=== PATIENT | female | born 1945 | race Caucasian/White ===

== ENCOUNTER → 2016-06-28 | Outpatient (CLI) | payer MEDICARE, OTHER ==
[~2016-06-28] MED LIST: BIOT1SUB SL; BIOT50005 PO; CALC1TAB53 PO; CENTTAB PO; LISI20TA PO; LYSI1TAB4 PO; OCUVTAB PO; VITA-83 PO; VITA500T49 PO
[2016-06-28 13:30] LABS: BACTERIA, URINE RARE /hpf; BLOOD, URINE NEG (NEG); GLUCOSE,URINE NEG (NEG); KETONE, URINE NEG (NEG); MUCUS URINE FEW /lpf (OCC); NITRITE,URINE NEG (NEG); PH, URINE 5.5 (5.0-8.5); SQUAMOUS EPITHELIAL CELL URINE <1 /hpf (0-5); URINE COLOR LIGHT-YELLOW (YELLW/STRAW)
[2016-06-28 13:37] LABS: COMMENT (UR) CULT NOT INDICATED; CULTURE IF INDICATED CULT NOT INDICATED
[2016-06-28 13:38] LABS: INTERNATIONAL NORMALIZED RATIO 0.9 RATIO
[2016-06-28 13:53] LABS: BICARBONATE 27.3 MEQ/L (21.0-32.0)
--- NOTE | 2016-06-28 14:45 | RADRPT ---
EXAM DATE/TIME: 06/28/2016 13:49 [facility] COMPARISON: No previous studies available for comparison. INDICATIONS : Evaluate for pneumonia, pneumothorax or communicable disease.Pre op for right knee surgery 07-06-16 MEDICAL HISTORY : None. SURGICAL HISTORY : None. ENCOUNTER: Initial ACUITY: 1 day PAIN SCORE: 0/10 LOCATION: Bilateral chest FINDINGS: PA and lateral views of the chest demonstrate the lungs to be symmetrically aerated without evidence of mass, infiltrate or effusion. The cardiomediastinal contours are unremarkable. Osseous structure s are intact. Scoliotic curvature. CONCLUSION: No acute disease. Pedro Gerard Jr., MD on June 28, 2016 at 14:43 Board Certified Radiologist. This report was verified electronically.
--- NOTE | 2016-06-29 16:43 | EKG ---
Date Performed: 06/28/2016 Time Performed: 13:11:19 PTAGE: 70 years EKG: Sinus rhythm LOW QRS VOLTAGE IN PRECORDIAL LEADS POSSIBLE ANTERIOR MYOCARDIAL INFARCTION, PROBABLY OLD BORDERLINE ECG NO PREVIOUS TRACING DOCTOR: Flavio Huang Interpretating Date/Time 06/29/2016 16:41:35
== END ==
LOC: CPRE 12:44
PROVIDERS: ATTEND Orthopaedic Surgery
DX: Z01.810 Encounter for preprocedural cardiovascular examination (principal); S83.231A Complex tear of medial meniscus, current injury, right knee, initial encounter; R94.31 Abnormal electrocardiogram [ECG] [EKG]; Z01.812 Encounter for preprocedural laboratory examination; Z01.818 Encounter for other preprocedural examination; X58.XXXA Exposure to other specified factors, initial encounter
CPT/HCPCS: 36415; 71020; 80048; 81001; 85610; 93005

== ENCOUNTER → 2016-07-06 | Day surgery (SDC) | payer MEDICARE, OTHER ==
--- NOTE | 2016-06-28 16:54 | MH ---
cc: VEENA TAPIA M.D. DATE OF ADMISSION: 07/06/2016 ADMITTING DIAGNOSIS: 1. A complex tear of the medial meniscus of the right knee. 2. Large joint effusion, right knee. 3. Chondromalacia, right knee. 4. Solomon's cyst, right knee. 5. Pain of the right knee. HISTORY OF PRESENT ILLNESS: The patient is a 79-year-old white female who has had at least a 5-month history of pain involving her right knee. She associated the onset of her symptoms while she was visiting her daughter in [place] in February of this past year and while negotiating stairs on a regular basis she began to note soreness about her right knee. Upon her return home, she remained active as she was preparing her home for the anticipation of [place]. Her symptoms persisted for which she conformed to conservative management which included ice application, rest and elevation and taking Advil. She later switched to Tylenol and Aleve that she found to be somewhat more effective as well as wearing an elastic knee support. Her symptoms tended to wax and wane in nature for which she was later seen in March of this past year by her primary care physician, Dr. Canales. X-ray studies were unremarkable. The patient was treated with a steroid Dosepak that she did find to be of temporary benefit. Her symptoms tended to recur thereafter and she subsequently underwent an MRI scan the results of which identified a complex medial meniscus tear with extrusion of the body of the meniscus associated with a large joint effusion, moderately severe medial compartment chondromalacia and mild chondromalacia of the lateral compartment was also identified. A small Solomon's cyst was associated. The patient was subsequently seen by the undersigned physician in May of this year and at that time she reported ongoing pain about her right knee somewhat more pronounced medially associated with swelling but no grinding, locking or giving way. Her overall clinical findings were felt to be consistent with internal derangement of the right knee for which findings and treatment options were reviewed. The pros and cons of continuing with conservative management versus operative intervention that would involve arthroscopic surgery were outlined in detail. Emphasis was made regarding the fact that the decision to proceed with surgery would be left entirely to the patient's discretion. The patient herself indicated that she felt she had progressed to that point in time where she would like to proceed with such treatment, and in compliance with her wishes she was currently scheduled for admission in order that arthroscopic surgery be accomplished. PAST MEDICAL HISTORY, HOSPITALIZATIONS AND SURGERIES: Her past medical history, hospitalizations and surgeries have included: 1. Excision of a uterine cyst. 2. Removal of an infected IUD. 3. Colectomy for history of stage III cancer of the ascending colon. 4. Tonsillectomy. 5. Appendectomy. 6. D&C. 7. Colonoscopy. The patient's medical illnesses include: 1. Hypertension for which she takes lisinopril, hydrochlorothiazide 25 / 12.5 daily. MEDICATIONS: Her additional medications include: 1. Multiple supplements including Centrum Silver, calcium, magnesium, zinc, D3, vitamin C, vitamin B12, biotin, l-lysine, and Ocuvite. ALLERGIES: THE PATIENT DENIES ANY KNOWN DRUG ALLERGIES. REVIEW OF SYSTEMS: She does wear glasses. Denies headache, seizure or syncope. No sinus congestion or epistaxis. Auditory acuity intact. No tinnitus. No bleeding gums or dysphagia. Denies cough, shortness of breath, upper respiratory infection, pneumonia or tuberculosis. She has had positive skin testing for tuberculosis in the past. No angina or heart disease. She is medically managed for hypertension. Her appetite is good. Bowel movements are regular. No hepatitis, gallbladder disease, ulcers or hemorrhoids. No urinary tract infection. No kidney stones. History of a fracture of the right forearm during childhood treated by cast immobilization. No psychiatric illness. Her remaining review of systems is unremarkable and noncontributory. FAMILY HISTORY: The patient has been 7 years, this being a second marriage. Her is 71 years of age with multiple medical problems including diabetes, heart disease, congestive heart failure and prostate cancer. She has one son and one daughter by previous marriage who are indicated to be in good health. Her family history is otherwise positive for hypertension, diabetes, heart disease and colon cancer. SOCIAL HISTORY: The patient completed a college education. 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 She denies active use of tobacco. Ethanol consumption in the form of an occasional glass of wine. PHYSICAL EXAMINATION: HEIGHT: Height is 5 feet 4 inches. WEIGHT: 203 pounds. GENERAL: An alert, oriented and responsive 70-year-old white female who sits quietly upon examination table with no obvious distress. HEAD, EYES, EARS, NOSE, THROAT: Pupils are equal, round and reactive to light. Extraocular movements full. Sclerae are clear. External nares are clear. External auditory canals clear. Dental intact. Mucous membranes pink and moist. Pharynx clear. NECK: Neck is supple. Active range motion without appreciable pain. Carotid pulse bilaterally. Trachea midline. Thyroid without enlargement. LUNGS: Clear to auscultation and percussion. No CVA tenderness. No discomfort throughout the dorsal or lumbar spine. HEART: Regular rhythm. No murmur or gallop. ABDOMEN: Abdomen is soft, nontender. Bowel sounds present. PELVIC: Per primary care physician. EXTREMITIES: Right knee - there is mild fullness about the knee consistent with redundancy of soft tissue. No obvious intra-articular effusion. Medial joint line tenderness. Apprehension and compression signs negative. Satisfactory mobility of the knee joint with slight limitation at the extreme of flexion without significant crepitation elicited. No collateral ligamentous laxity. Mary test and draw sign negative. Pivot shift and Brittani sign minimally positive for medial compartment pain. Straight-leg raising unremarkable at 80 degrees. Satisfactory mobility of the right hip with no associated pain. Distal sensory grossly intact. Independent gait. NEUROLOGIC: Cranial nerves II-XII grossly intact. IMPRESSION: 1. Complex tear of medial meniscus right knee. 2. Large joint effusion right knee. 3. Chondromalacia right knee. 4. Popliteal cyst right knee. 5. Pain right knee PLAN: Arthroscopic surgery and possible arthrotomy right knee. The nature of the planned surgical procedure, the potential complications and risks associated, the expectations of surgery and the consent form were thoroughly reviewed with the patient prior to admission to the hospital and she has indicated her full understanding regarding all of the above and has given consent to proceed with treatment as outlined. Medical evaluation and clearance for surgery will be completed by her primary care physician, Dr. Tobin Canales. MD HERNANDEZ Pope/JCC /3:55 PM /4:09 PM
[~2016-07-06] VITALS: Ht 162.6 cm; Wt 93.2 kg
[~2016-07-06] MED LIST changes: +*morphine SULFATE 8 MG/ML PERIprocedure ONLY ONE; +ACETAMINOPHEN 1000 MG/100 ML VIAL IV ONE; +ACETAMINOPHEN/HYDROcodone 325 MG/5 MG TAB PO PRN; +DO NOT ADM ANY ANTICOAGULANT DRUGS XX PRN; +FAMOTIDINE 20 MG/2 ML VIAL ONE; +INSULIN HUMAN REGULAR 1,000 UNITS/10 ML VIAL SQ PRN; +KETOROLAC TROMETHAMINE 60 MG/2 ML (IM) VIAL IM ONE; +LACTATED RINGER'S 1000 ML INJ 1,000 ML IV ONE; +LACTATED RINGER'S 1000 ML IV SCH; +LIDOCAINE HCL 2% PF SOLN 10 ML VIAL ONE; +METOPROLOL TARTRATE 25 MG TAB PO PRN; +MIDAZOLAM HCL 2 MG/2 ML VIAL ONE; +ONDANSETRON HCL 4 MG/2 ML VIAL IV PUSH ONE; +POVIDONE IODINE 7.5% SCRUB 118 ML BOTTLE TOP SCH; +PROMETHAZINE INJ 25 MG/ML VIAL IM PRN; +PROPOFOL 200 MG/20 ML AMP IV ONE; +SODIUM CHLORID 0.9% 500 ML IV SCH; +TRIAMCINOLONE ACETONIDE 40 MG/ML VIAL I-SYNOVIAL ONE; +ceFAZolin 2 GM PREMIX 50 ML IV SCH; +fentaNYL CITRATE 250 MCG/5 ML AMP ONE
[2016-07-06 06:12] VITALS: BP 164/83; PULSE 71; RESP 18; TEMP 97.9; O2SAT 96
[2016-07-06 09:30] VITALS: TEMP 97.5
[2016-07-06 10:30] VITALS: BP 153/86; PULSE 59; RESP 18; O2SAT 98
--- NOTE | 2016-07-06 13:33 | MP ---
cc: VEENA TAPIA DATE OF SURGERY July 06, 2016 PREOPERATIVE DIAGNOSES Complex tear medial meniscus right knee. Large joint effusion. Chondromalacia right knee. Solomon's cyst right knee. Pain right knee. POSTOPERATIVE DIAGNOSES Complex tear medial meniscus right knee. Large joint effusion. Chondromalacia right knee. Solomon's cyst right knee. Pain right knee. Synovial plica right knee. PROCEDURE 1. Partial medial meniscectomy right knee. 2. Chondroplasty of medial femoral compartment and resection of synovial plica right knee. SURGEON MD Piotr ANESTHESIA General by LMA. FORMAT Following the induction of satisfactory general anesthesia by LMA insertion as completed per the Department of Anesthesia, examination of the right knee revealed a satisfactory range of motion with no appreciable ligamentous instability. The extremity proper was positioned into the ophthalmology surgical technician knee collier, prepped with Betadine solution and draped into a sterile field in the routine manner. Prior to initiation of the actual procedure, the standard time-out protocol was completed, all parameters being appropriately addressed and confirmed by operating room personnel. Arthroscopic instrumentation was introduced through stab wound utilizing cannula with sharp and blunt trocar, the inflow irrigation by way of the medial suprapatellar portal, the arthroscope through a lateral parapatellar portal and a probe through a medial parapatellar portal. Examination of the suprapatellar pouch revealed reactive synovitis with a prominent synovial plica extending along the medial margin of the suprapatellar region. There was mild to moderate articular changes about the patellar surface consistent with localized chondromalacia. Within the medial compartment, a complex tear involving the posterior horn of the medial meniscus was identified and upon probing there was an extruded segment of the meniscus that was left in a posterior orientation. There were associated chondromalacia changes involving the femoral condyle. The anterior cruciate ligament was identified and noted to be intact. Examination of the lateral compartment was without evidence of internal derangement. Attention was redirected to the medial compartment. Utilizing both a biting suction forceps as well as a 3.8-mm Aggressive resector, a partial medial meniscectomy was accomplished as well as a chondroplasty of the medial femoral condyle. Upon completion of same, the shaver was oriented into the suprapatellar region where the previously identified synovial plica was resected. Upon completion of same the joint space was thoroughly lavaged and suctioned dry, an intraarticular Kenalog/lidocaine injection completed. The portal sites were reapproximated with Steri-Strips over which Xeroform gauze and a bulky dry sterile dressing was placed. Anesthesia was discontinued and the patient thus transferred to a hospital stretcher and returned to the recovery room in satisfactory condition having tolerated her operative procedure well. Estimated blood loss was approximately 10 cc. MD HERNANDEZ Pope/[place] /8:41 AM /1:24 PM
== END | disposition home or self-care (01) ==
LOC: HSDC 05:34 → EDUNIT# 07:30
PROVIDERS: ATTEND Orthopaedic Surgery
DX: S83.231A Complex tear of medial meniscus, current injury, right knee, initial encounter (principal); M25.461 Effusion, right knee; M94.261 Chondromalacia, right knee; M71.21 Synovial cyst of popliteal space [Baker], right knee
CPT/HCPCS: 01400; 29881; J0131; J0690; J1885; J2250; J2270; J2405; J3010; J3301; J7120